=== PATIENT | male | born 1960 | race Caucasian/White ===

== ENCOUNTER 2017-10-21 14:28 | Emergency (ER) | payer OTHER ==
[2017-10-21] MEDS ORDERED: Ketorolac Tromethamine 30 MG/ML VIAL ONE (15:37)
--- NOTE | 2017-10-21 15:42 | RAD ---
3 VIEWS RIGHT GREAT TOE: Date: 10/21/17 HISTORY: Right great toe pain. Patient dropped object on right toe. FINDINGS: There is no fracture or dislocation involving the right great toe. 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 IMPRESSION: No acute osseous abnormality right great toe. POS: OFF
[2017-10-21] MEDS ORDERED: Lidocaine 1% PF 5 ML VIAL ONE (15:53)
== END 2017-10-21 15:42 | disposition home or self-care (01) ==
LOC: ERS 14:28
DX: S90.111A Contusion of right great toe without damage to nail, initial encounter (principal); I25.2 Old myocardial infarction; E78.5 Hyperlipidemia, unspecified; I10 Essential (primary) hypertension; F41.9 Anxiety disorder, unspecified; F32.9 Major depressive disorder, single episode, unspecified; Z87.891 Personal history of nicotine dependence; W22.8XXA Striking against or struck by other objects, initial encounter
CPT/HCPCS: 96372; J1885; J2001

== ENCOUNTER 2021-01-27 14:26 | Emergency (ER) | payer MEDICARE ==
[2021-01-27] MEDS ORDERED: Fentanyl 100 MCG/2 ML VIAL ONE ×2 (14:52→15:56)
[2021-01-27] MEDS ORDERED: Boostrix 0.5 ML (Tdap) VIAL ONE (14:54)
[2021-01-27 14:56] LABS: #Eosinphils 0.4 thou/uL (0.0-0.7); #Lymphocytes 2.7 thou/uL (1.20-3.40); #Monocytes 0.7 thou/uL (0.11-0.59); #Neutrophils 5.2 thou/uL (1.40-6.50); %Basophils 0.5 % (0.0-1.0); %Eosinophils 4.5 % (0.0-10.0); %Lymphocytes 30.3 % (21.0-51.0); %Monocytes 7.2 % (0.0-10.0); %Neutrophils 57.6 % (42.0-75.0); Hemoglobin 13.4 g/dL (14.0-18.0); Mean Corpuscular HGB CONC 32.6 g/dL (32.0-36.0); Mean Corpuscular Hemoglobin 29.1 pg (27.0-31.0); Mean Corpuscular Volume 89.5 fL (78.0-98.0); Mean Platelet Volume 6.9 fL (7.4-10.4); Platelet Count 287 thou/uL (130-400); RBC Distribution Width 12.3 % (11.5-14.5)
[2021-01-27 15:03] LABS: PTT 29.8 sec (22.9-36.1); Prothrombin Time 13.5 sec (12.0-14.7)
[2021-01-27 15:18] LABS: ALT (SGPT) 24 U/L (8-55); AST (SGOT) 24 U/L (5-34); Albumin 4.1 g/dL (3.5-5.0); Alkaline Phosphatase 60 U/L (40-110); Anion Gap 14 mmol/L (10-20); BUN (Urea Nitrogen) 23 mg/dL (8.4-25.7); Bilirubin, Total 0.7 mg/dL (0.2-1.2); Calc. Creatinine Clearance 0 mL/min (70-130); Calcium 8.9 mg/dL (7.8-10.44); Carbon Dioxide 20 mmol/L (22-29); Chloride 103 mmol/L (98-107); Glucose 137 mg/dL (70-105); Protein, Total 7.1 g/dL (6.0-8.3); Sodium 133 mmol/L (136-145)
== END 2021-01-27 16:12 | disposition home or self-care (01) ==
LOC: ERS 14:26
DX: S50.12XA Contusion of left forearm, initial encounter (principal); E78.00 Pure hypercholesterolemia, unspecified; E78.5 Hyperlipidemia, unspecified; I10 Essential (primary) hypertension; Z87.891 Personal history of nicotine dependence; W27.8XXA Contact with other nonpowered hand tool, initial encounter
CPT/HCPCS: 36415; 80053; 82550; 83605; 84484; 85025; 85610; 85730; 86850; 86900; 86901; 90471; 90715; 96374; 96376; J3010

== ENCOUNTER 2022-05-01 08:49 | Outpatient (CLI) | payer OTHER ==
[2022-05-01 10:04] LABS: Hemoglobin 13.5 g/dL (13.5-17.5); Mean Corpuscular HGB CONC 33.8 g/dL (32.0-36.0); Mean Corpuscular Hemoglobin 30.4 pg (27.0-33.0); Mean Corpuscular Volume 89.9 fl (81.2-95.1); Mean Platelet Volume 9.5 fl (7.4-10.4); Platelet Count 270 10x3/uL (150-450); Red Blood Cell (RBC) Count 4.44 10x6/uL (4.32-5.72); White Blood Cell (WBC) Count 10.2 10x3/uL (3.5-10.5)
[2022-05-01 10:26] LABS: Anion Gap 13 mmol/L (10-20); BUN (Urea Nitrogen) 16 mg/dL (8.4-25.7); Calc. Creatinine Clearance 0 mL/min (70-130); Calcium 9.2 mg/dL (7.8-10.44); Carbon Dioxide 24 mmol/L (22-29); Chloride 107 mmol/L (98-107); Estimated GFR 101; Glucose 90 mg/dL (70-105); Potassium 4.4 mmol/L (3.5-5.1); Sodium 140 mmol/L (136-145)
== END 2022-05-01 08:50 | disposition home or self-care (01) ==
LOC: LABBT 08:49
PROVIDERS: ATTEND Neurological Surgery
DX: Z01.812 Encounter for preprocedural laboratory examination (principal); M54.16 Radiculopathy, lumbar region; Z20.822 Contact with and (suspected) exposure to COVID-19
CPT/HCPCS: 80048; 85027; 87811

== ENCOUNTER 2022-05-06 07:57 | Day surgery (SDC) | payer MEDICARE, OTHER ==
[2022-05-01 16:40] VITALS: BMI 27.0
[2022-05-06] MEDS ORDERED: Fentanyl 100 MCG/2 ML VIAL ONE ×4 (08:57→12:55)
[2022-05-06] MEDS ORDERED: Thrombin 5000 UNITS/5 ML VIAL ONE (09:12)
[2022-05-06] MEDS ORDERED: EPINEPHrine 1 MG/ML AMP ONE (09:12)
[2022-05-06] MEDS ORDERED: Bupivacaine PF 0.5% 30 ML VIAL ONE (09:12)
[2022-05-06] MEDS ORDERED: CEFAZOLIN 2 GM VIAL ONE ×2 (09:24→14:23)
[2022-05-06] MEDS ORDERED: Sodium Chloride 0.9% 100 ML ONE ×2 (09:24→14:23)
[2022-05-06] MEDS ORDERED: fentaNYL Citrate/PF 100 MCG/2 ML SYRINGE ONE (09:39)
[2022-05-06] MEDS ORDERED: Dexamethasone 20 MG/5 ML VIAL ONE (09:45)
[2022-05-06] MEDS ORDERED: Glycopyrrolate 0.2 MG/ML 5 ML SYRINGE ONE (09:45)
[2022-05-06] MEDS ORDERED: ePHEDrine 50 MG/ML VIAL ONE (09:45)
[2022-05-06] MEDS ORDERED: Labetalol HCl 100 MG/20 ML VIAL ONE (09:45)
[2022-05-06] MEDS ORDERED: Ondansetron PF 4 MG/2 ML Vial ONE (09:45)
[2022-05-06] MEDS ORDERED: PROPOFOL 200 MG/20 ML VIAL ONE (09:45)
[2022-05-06] MEDS ORDERED: Rocuronium Bromide 10 MG/ML (10ML VIAL) ONE (09:45)
[2022-05-06] MEDS ORDERED: SUGAMMADEX SODIUM 200 MG/2 ML VIAL ONE (10:39)
[2022-05-06] MEDS ORDERED: Tamsulosin HCl 0.4 MG CAP ONE (13:29)
[2022-05-06] MEDS ORDERED: HYDROcodone/Acetaminophen 5/325 mg Tablet ONE (13:30)
== END 2022-05-06 15:00 | disposition home or self-care (01) ==
LOC: SDC 07:57
PROVIDERS: ATTEND Neurological Surgery
PROC: 01NB0ZZ Release Lumbar Nerve, Open Approach (ICD-10-PCS; principal; 2022-05-06)
DX: M54.16 Radiculopathy, lumbar region (principal); M25.78 Osteophyte, vertebrae; M48.061 Spinal stenosis, lumbar region without neurogenic claudication; E78.5 Hyperlipidemia, unspecified; G89.29 Other chronic pain; E11.9 Type 2 diabetes mellitus without complications; I11.9 Hypertensive heart disease without heart failure; F17.200 Nicotine dependence, unspecified, uncomplicated; Z79.82 Long term (current) use of aspirin; Z79.84 Long term (current) use of oral hypoglycemic drugs; Z79.899 Other long term (current) drug therapy; Z91.013 Allergy to seafood; Z91.030 Bee allergy status
CPT/HCPCS: 76000; J0171; J0690; J1100; J2405; J2704; J3010; J3490; S0020

== ENCOUNTER 2023-05-21 12:32 | Outpatient (CLI) | payer OTHER ==
[2023-05-21] MEDS ORDERED: Iopamidol 370 76% 100 ML VIAL ONE (14:15)
== END 2023-05-21 12:33 | disposition home or self-care (01) ==
LOC: CT 12:32
PROVIDERS: ATTEND Thoracic Surgery (Cardiothoracic Vascular Surgery)
DX: I65.8 Occlusion and stenosis of other precerebral arteries (principal); I65.21 Occlusion and stenosis of right carotid artery
CPT/HCPCS: 70498; 82565; Q9967

== ENCOUNTER 2025-08-30 07:35 | Outpatient (CLI) | payer OTHER | END 2025-08-30 07:36 | disposition home or self-care (01) | LOC: BICCT 07:35 | PROVIDERS: ATTEND Internal Medicine | DX: Z12.2 Encounter for screening for malignant neoplasm of respiratory organs (principal); F17.218 Nicotine dependence, cigarettes, with other nicotine-induced disorders; R06.09 Other forms of dyspnea | CPT/HCPCS: 71271 ==